=== PATIENT | female | born 1995 | race African-American/Black ===

== ENCOUNTER 2019-10-23 23:48 | Emergency (ER) | payer OTHER ==
[2019-10-24] MEDS ORDERED: Ondansetron ODT 4 MG TAB ONE (00:22)
[2019-10-24] MEDS ORDERED: Morphine 4 MG/ML VIAL ONE (00:22)
== END 2019-10-24 00:40 | disposition home or self-care (01) ==
LOC: ERS 23:48
DX: S39.012A Strain of muscle, fascia and tendon of lower back, initial encounter (principal); X50.1XXA Overexertion from prolonged static or awkward postures, initial encounter
CPT/HCPCS: 96372; 99283; J2270; Q0162